=== PATIENT | female | born 1955 | race Caucasian/White ===

== ENCOUNTER → 2018-03-24 | Outpatient (CLI) | payer OTHER ==
--- NOTE | 2018-03-24 15:56 | WOMENS IMAGING REPORT ---
EXAM DESCRIPTION: U/S BREAST UNILATERAL, COMPL COMPLETED DATE/TIME: 03/24/2018 10:50 am REASON FOR STUDY: MASTODYNIA N64.4 MASTODYNIA T85.49XA [facility] COMPL OF BREAST PROSTHESIS AND IMPLANT , INIT E COMPARISON: Right breast ultrasound 12/05/2014 Mammograms 12/05/2014, 03/23/2012 TECHNIQUE: Real-time and static grayscale imaging performed of the right breast targeted to the area of clinical concern. Selected color Doppler images recorded. Patient describes right breast pain, right whole breast ultrasound was performed including the axilla . Patient refused mammograms today LIMITATIONS: None. FINDINGS: There is silicone extravasation from the right breast implant in the central retroareolar region and upper outer quadrant. By ultrasound, this is similar compared to 12/05/2014. Ultrasound of the right axilla is unremarkable. No enlarged or abnormal lymph nodes are identified. IMPRESSION: Silicone extravasation around the periphery of the right breast implant, similar compare d to ultrasound 12/05/2014. BIRAD: 2 Benign findings. RECOMMENDATION: RECOMMENDED FOLLOW-UP: Follow-up as clinically indicated. COMMENT: The [employer] ([employer]) has developed recommendations for screening MRI of the breasts in certain patient populations, to be used in conjunction with mammography. Breast MRI s urveillance may be appropriate for women with more than 20% lifetime risk of developing breast cancer as determined by genetic testing, significant family history of the disease, or history of mantle r adiation for Hodgkins Disease. ACR Practice Guidelines 2007. TECHNICAL DOCUMENTATION: JOB ID: [id number] [employer]- All Rights Reserved Reading location - IP/workstation name: [email or web address]
== END ==
LOC: WI 10:03
PROVIDERS: ATTEND Physician Assistant
DX: T85.49XA Other mechanical complication of breast prosthesis and implant, initial encounter (principal); N64.4 Mastodynia
CPT/HCPCS: 76641

== ENCOUNTER → 2019-02-16 | Outpatient (CLI) | payer OTHER ==
--- NOTE | 2019-02-16 16:10 | RADIOLOGY REPORT (SQ) ---
EXAM DESCRIPTION: CT ABD/PELVIS COMBO COMPLETED DATE/TIME: 02/16/2019 3:47 pm REASON FOR STUDY: HEMTURIA R31.29 OTHER MICROSCOPIC HEMATURIA COMPARISON: None. TECHNIQUE: CT scan of the abdomen and pelvis performed with and without intravenous contrast, and wi thout oral contrast. Contrasted imaging performed helical scanning technique and dynamic intravenous contrast injection. Images reviewed with lung, soft tissue, and bone windows. Reconstructed coronal a nd sagittal MPR images reviewed. Delayed images for evaluation of the urinary system also acquired. A ll images stored on PACS. All CT scanners at this facility use dose modulation, iterative reconstruction, and/or weight based d osing when appropriate to reduce radiation dose to as low as reasonably achievable (ALARA). [facility]: Dose Right [facility]: CareDose [facility]: Dose Right [facility]: Teradose 4D [facility]: ALLGOOB CONTRAST TYPE AND DOSE: contrast/concentration: Isovue 350.00 mg/ml; Total Contrast Delivered: 101.1 ml; Total Saline Delivered: 73.0 ml RENAL FUNCTION: Creatinine 0.8 RADIATION DOSE: CT Rad equipment meets quality standard of care and radiation dose reduction techniq ues were employed. CTDIvol: 18.2 - 20.7 mGy. DLP: 4552 mGy-cm.. LIMITATIONS: None. FINDINGS: NON-CONTRASTED IMAGING: No significant renal or bladder calcifications. No other significa nt organ calcifications. POST-CONTRASTED IMAGING: LOWER CHEST: Mild motion artifact. Cardiac enlargement. Small hiatal hernia. LIVER: 1 cm cyst in the anterior liver. No worrisome lesions. SPLEEN: Normal size. No focal lesions. PANCREAS: No masses. No significant calcifications. No adjacent inflammation or peripancreatic fluid collections. Pancreatic duct not dilated. GALLBLADDER: Surgically absent. ADRENAL GLANDS: No significant masses or asymmetry. RIGHT KIDNEY AND URETER: No solid masses. No significant calcification. No hydronephrosis or hydroure ter. LEFT KIDNEY AND URETER: No solid masses. No significant calcification. No hydronephrosis or hydrouret er. AORTA AND VESSELS: No aneurysm. No dissection. Renal arteries, SMA, celiac without stenosis. RETROPERITONEUM: No retroperitoneal adenopathy, hemorrhage or masses. BOWEL AND PERITONEAL CAVITY: Diverticulosis which is most pronounced in the distal colon. No active inflammatory changes. Bowel otherwise normal. No ascites or abnormal gas. APPENDIX: Surgically absent. PELVIS: Bladder unremarkable, without stones or masses. No pelvic mass or fluid. ABDOMINAL WALL: No masses. No hernias. BONES: Mild spondylosis. Includes minimal degenerative listhesis at L3-4. OTHER: No other significant finding. IMPRESSION: 1. Generally unremarkable CT of the abdomen and pelvis without and with contrast. No urinary tract s tones, obstruction or mass evident. TECHNICAL DOCUMENTATION: JOB ID: [id number] Quality ID # [id number]: Final reports with documentation of one or more dose reduction techniques (e.g., Au tomated exposure control, adjustment of the mA and/or kV according to patient size, use of iterative reconstruction technique) 2010 [employer]- All Rights Reserved Reading location - IP/workstation name: [email or web address]
== END ==
LOC: RAD 14:53
PROVIDERS: ATTEND Urology
DX: R31.29 Other microscopic hematuria (principal)
CPT/HCPCS: 74178; 82565